=== PATIENT | male | born 1935 | race Caucasian/White ===

== ENCOUNTER → 2017-11-13 | Outpatient (CLI) | payer OTHER ==
[~2017-11-13] MED LIST: ASPIRIN325 MG PO; CENTRUM SILVER1 EAC3 PO; GABAPENTIN PO; IOPAMIDOL 370 MG/ML 200 ML INFUS..BTL INJ ONE; MECLIZINE HCL12.5 MG PO; OMEPRAZOLE PO; PLAVIX75 MG PO; SIMVA PO; SIMVASTATIN PO; SLEEPING PILL PO; SODIUM CHLORIDE 0.9% 100 ML ONE; SUPER B COMPLE150 MG PO; TRAZODONE PO
[2017-11-13 09:14] LABS: BLOOD UREA NITROGEN 10 mg/dL (7-26); BUN/CREATININE RATIO 9 (6-25); CREATININE, SERUM 1.07 mg/dL (0.72-1.25); EST GLOMERULAR FILTRATION RATE > 60 ML/MIN (60-)
--- NOTE | 2017-11-14 10:30 | Diagnostic Imaging Report ---
History:Blockage on right side of the neck, Comparison studies:None Technique: Axial images were obtained from the thoracic inlet. Coronal and sagittal images reconstructed from the axial data. Intravenous contrast: 100 cc of Omnipaque 300. Findings: Percentage of stenosis will be based on the NASCET criteria Aortic arch and major vessels: Patent. Nonstenotic atherosclerotic calcification. Common carotid arteries: Patent. No abnormalities. Right internal carotid artery: Patent. Calcified and noncalcified atherosclerotic plaque at the bulb results in less than 20% stenosis. Nonstenotic atherosclerotic calcifications at the carotid siphon. Left internal carotid artery: Patent. Calcified and noncalcified plaque at the bulb results in less than 20% stenosis. Nonstenotic atherosclerotic calcification of the carotid siphon. Patent bilateral ACAs and MCAs.. Right vertebral artery: Patent. Diminutive. Atherosclerotic calcifications of the intracranial segment results in 40-50% stenosis. PICA termination. Left vertebral artery: Patent. Dominant left. Atherosclerotic calcifications in the intracranial segment results in less than 20% stenosis. Basilar artery: Diminutive proximal basilar artery with nonopacification of the mid segment. Reconstitution of the distal segment. Hypoplastic left P1 segment. Posterior cerebral arteries: Patent bilaterally. origin on the left side. Anatomical variants: Acom: Patent . Pcoms: Patent. Vertebral arteries: Left dominant. PICA termination of the right Scattered hypodensities of the periventricular and deep white matter. 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 No abnormal enhancement. Uncinate process hypertrophy and facet hypertrophy results in multilevel mild to moderate foraminal narrowing more significant at C6-7. IMPRESSION: Cervical CTA: 1. Calcified and noncalcified atherosclerotic plaque at the carotid bulbs results in mild stenosis. No other stenosis of the neck arteries Intracranial CTA: 1. 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 2. Diminutive right vertebral artery with PICA termination. 3. origin of the left posterior cerebral artery with patent bilateral P-comm. Other nonstenotic atherosclerotic calcifications of the intracranial circulation Signed by: DR Cr Salinas M.D. on 11/14/2017 12:56 PM
== END ==
LOC: CT 08:31
PROVIDERS: ATTEND Specialist
DX: H81.10 Benign paroxysmal vertigo, unspecified ear (principal)
CPT/HCPCS: 36415; 70496; 70498; 82565; 84520; J7050; Q9967

== ENCOUNTER → 2017-12-09 | Outpatient (CLI) | payer OTHER ==
[~2017-12-09] MED LIST changes: -IOPAMIDOL 370 MG/ML 200 ML INFUS..BTL INJ ONE; -SODIUM CHLORIDE 0.9% 100 ML ONE
--- NOTE | 2017-12-09 17:09 | Diagnostic Imaging Report ---
History: Dizziness Comparison studies: Head CT on 11/13/2017 Brain MRI on 07/20/2010 Technique: Sagittal T2; axial DWI, FLAIR, MPGR, T1, Coronal FLAIR. Intravenous contrast: None Findings: Scalp: Normal in signal . No masses . Bone marrow: Normal in signal intensity. Extra-axial: No masses or fluid collections. Brain sulci: Appropriate for age. Ventricles: Normal in size . No hydrocephalus . Parenchyma: Multiple confluent and discrete T2 FLAIR hyperintense foci in the periventricular and deep supratentorial white matter and in the right myrna are nonspecific small vessel ischemic changes. Old lacunar insults No masses, hemorrhage, acute or chronic cortical ischemic insults. Suprasellar region: No abnormalities. Craniocervical junction: No abnormalities. Patent foramen magnum. No Chiari one malformation. Vessels: Normal flow-voids in the arteries and sinuses. The basilar artery is hypoplastic but the posterior communicating arteries are prominent which suggests origins of the [facility] sales. IMPRESSION: 1. No acute abnormalities. 2. Moderate microvascular ischemic changes in the supratentorial white matter and in the right myrna have slightly increased when compared to 07/20/2010. 3. Otherwise, no changes when compared to the previous MRI or the recent head CT. Persistent findings: Mild age-related generalized volume loss. Small basilar artery is probably due to origin of the posterior cerebral arteries. Signed by: Dr. Khoa Jean-Baptiste M.D. on 12/09/2017 4:33 PM
== END ==
LOC: MRI 13:52
PROVIDERS: ATTEND Specialist
DX: R42 Dizziness and giddiness (principal)
CPT/HCPCS: 70551

== ENCOUNTER → 2021-07-09 | Outpatient (CLI) | payer OTHER | LOC: RAD 11:43 | PROVIDERS: ATTEND Family Medicine | DX: R79.1 Abnormal coagulation profile (principal) | CPT/HCPCS: 93970 ==